=== PATIENT | male | born 1990 | race Caucasian/White ===

== ENCOUNTER 2019-12-25 18:41 | Emergency (ER) | payer MEDICAID, SELFPAY ==
[2019-12-25 18:42] VITALS: BP 101/59; PULSE 62; RESP 20; TEMP 36.8; O2SAT 100; BMI 20.2
--- NOTE | 2019-12-25 18:53 | CT_ITS ---
PROCEDURE: CT ABDOMEN PELVIS WO CON CLINICAL INDICATION: poss kindey stone Right-sided abdominal pain with nausea and vomiting COMPARISON: CT ABDOMEN PELVIS W CON from 06/26/2019 TECHNIQUE: Axial images obtained with sagittal and coronal reformats. All CT scans at the facility use one or more dose reduction, viz: automated exposure control, ma/kV adjustment per patient size (including targeted exams where dose is matched to indication, i.e. head), or iterative reconstruction technique. FINDINGS: LOWER THORAX: Mild fibrotic changes right middle lobe ABDOMEN & PELVIS: The liver, spleen, adrenal glands, pancreas, and gallbladder have an unremarkable unenhanced appearance. The 3 mm stone is present in the mid aspect of the right kidney. There is mild right hydronephrosis and hydroureter secondary to a 3 mm stone in the distal right ureter at the ureterovesical junction. There is a 2 mm nonobstructing stone in the mid polar region of the left kidney. Unremarkable appendix. No intestinal obstruction or free air. The colon has a thickened appearance however this may be due to non distention. No pelvic mass abnormal fluid collection or focal inflammatory change. No acute bony anomalies. Undistended testicle right inguinal region IMPRESSION: 3 mm right ureterovesical junction stone with nonobstructing calculi in both kidneys Nondistended right testicle versus retracted testicle in the inguinal canal area Dictated by: Gregory Castillo MD 12/26/2019 07:39 Electronically signed by Gregory Castillo MD in [place] 12/26/2019 07:39
[2019-12-25 19:10] LABS: Basophils # 0.1 K/mm3 (0-0.2); Basophils % 0.3 % (0.1-2.0); Eosinophils % 0.1 % (0.1-12.0); Hemoglobin 16.2 g/dL (14.1-18.0); Lymphocytes # 2.1 K/mm3 (0.7-4.5); Lymphocytes % 11.7 % (10-50); Mean Corpuscular HGB Conc 35.9 g/dL (31.8-35.4); Mean Corpuscular Hemoglobin 32.7 pg (27.0-31.2); Mean Corpuscular Volume 91.1 fl (80-94); Mean Platelet Volume 7.9 fl (7.4-10.4); Monocytes # 0.6 K/mm3 (0.1-1.0); Monocytes % 3.3 % (1.7-9.3); Neutrophils # 15.4 K/mm3 (1.8-7.8); Neutrophils % 84.6 % (37.0-80.0); Platelet Count 289 K/mm3 (142-424); Red Blood Count 4.94 M/mm3 (4.60-6.20); Red Cell Distribution Width 13.3 % (11.5-17.5); White Blood Count 18.2 K/mm3 (4.8-10.8)
[2019-12-25 19:16] LABS: MANUAL DIFFERENTIAL MANUAL DIFFERENTIAL (MANUAL DIFF)
[2019-12-25 19:17] LABS: Alanine Aminotransferase 31 U/L (12-78); Albumin Level 5.4 g/dl (3.5-5.0); Albumin/Globulin Ratio 1.5 (1.1-1.8); Alkaline Phosphatase 111 U/L (38-126); Amylase 82 U/L (30-110); Anion Gap 16.8 mEq/L (5-15); Aspartate Amino Transferase 48 U/L (17-59); Bilirubin,Total 0.6 mg/dl (0.2-1.3); Blood Urea Nitrogen 21 mg/dl (9-20); Calcium 10.6 mg/dl (8.4-10.2); Carbon Dioxide 26 mmol/L (22.0-30.0); Chloride 102 mmol/L (98-107); Creatinine Clearance Estimated 79 mL/min (50-200); Estimated Glomerular Filt Rate 66 ml/min (>60); GFR (African American) 80 ML/MIN (>60); Globulin 3.5 g/dL (1.3-3.2); Glucose 147 mg/dl (74-100); Lipase 43 U/L (23-300); Potassium 3.8 mmoL/L (3.5-5.1); Sodium 141 mmol/L (136-145); Total Protein,Serum 8.9 g/dl (6.3-8.2)
[2019-12-25 19:21] LABS: Lymphocytes % 6 % (10-50); Neutrophils % 88 % (42-76); Platelet Estimate Normal; RBC Morphology Normal; Total Cells Counted 100; Toxic Granulation 1+
--- NOTE | 2019-12-25 19:35 | [facility].EDABDPAI ---
ED Disposition Clinical Impression: Calculus of kidney Disposition: Home, Self-Care Condition on Discharge: Good Instructions: DI for Acute Abdomen Prescriptions: Cefdinir [Omnicef 300mg Capsule] 300 mg PO BID #20 cap Prescription Printed Promethazine HCl 50 mg PO TID 3 Days #10 tab NS Prescription Printed Ketorolac Tromethamine [Toradol 10mg tablet] 10 mg PO Q6H 5 Days #20 tab Prescription Printed Referrals: Provider,Referral, [Primary Care Provider] - - Critical Care Critical Care Time: No Attestation: On 12/25/19, the high probability of a clinically significant, sudden or life threatening deterioration of the following system(s) required my full and direct attention, intervention and personal management. The time I documented below is in addition to time spent performing reported procedures but includes the following listed in this critical care notation. Medical Decision Making - Medical Records Medical records reviewed: Yes: I reviewed the patient's medical records. - Joe Inquiry Pt receiving controlled substance: No Vital Signs: 12/25/19 18:42 Temperature 98.2 F Temperature Source Oral Pulse Rate [Right] 62 Respiratory Rate 20 Blood Pressure [Right Arm] 101/59 L Blood Pressure Mean [Right Arm] 73 02 Sat by Pulse Oximetry 100 - Lab Data Lab results reviewed: Yes: I reviewed the patient's lab results. Lab Results 12/25/19 18:55: WBC 18.2 H, RBC 4.94, Hgb 16.2, Hct 45.0, MCV 91.1, MCH 32.7 H, MCHC 35.9 H, RDW 13.3, Plt Count 289, MPV 7.9, Neut % (Auto) 84.6 H, Lymph % (Auto) 11.7, Woodson % (Auto) 3.3, Eos % (Auto) 0.1, Baso % (Auto) 0.3, Neut # (Auto) 15.4 H, Lymph # (Auto) 2.1, Woodson # (Auto) 0.6, Eos # (Auto) 0.0, Baso # (Auto) 0.1, Total Counted 100, Neutrophils % (Manual) 88 H, Band Neutrophils % 6.0, Lymphocytes % (Manual) 6 L, Toxic Granulation 1+, Platelet Estimate Normal, RBC Morphology Normal 12/25/19 18:55: Sodium 141, Potassium 3.8, Chloride 102, Carbon Dioxide 26, Anion Gap 16.8 H, BUN 21 H, Creatinine 1.30 H, Estimated Creat Clear 79, Estimated GFR 66, Est GFR ( Amer) 80, Glucose 147 H, Calcium 10.6 H, Total Bilirubin 0.6, AST 48, ALT 31, Alkaline Phosphatase 111, Total Protein 8.9 H, Albumin 5.4 H, Globulin 3.5 H, Albumin/Globulin Ratio 1.5, Amylase 82, Lipase 43 Result diagrams: 12/25/19 18:55 12/25/19 18:55 Orders (Tests/Meds): ED MEDICATIONS Generic Name Dose Route Start Last Admin Trade Name Freq PRN Reason Stop Dose Admin Amlodipine Besylate 10 mg 12/25/19 19:15 12/25/19 19:16 Norvasc 10mg Tablet PO 01/24/20 19:14 10 mg DAILY BARRERA Administration Sodium Chloride 1,000 mls @ 999 mls/hr 12/25/19 19:00 12/25/19 19:04 Sod Chlor 0.9% 1000ml Bag IV 12/25/19 20:00 999 mls/hr .Q1H1M BARRERA Administration Discontinued Medications Generic Name Dose Route Start Last Admin Trade Name Freq PRN Reason Stop Dose Admin Hydromorphone HCl 1 mg 12/25/19 19:13 12/25/19 19:16 Dilaudid 2mg/Ml Syringe IV 12/25/19 19:14 1 mg ONCE ONE Administration Ketorolac Tromethamine 30 mg 12/25/19 18:52 12/25/19 19:02 Toradol 30mg/Ml Vial IV 12/25/19 18:53 30 mg ONCE ONE Administration Morphine Sulfate 4 mg 12/25/19 18:52 12/25/19 19:03 Morphine 4mg/Ml Syringe IV 12/25/19 18:53 4 mg ONCE ONE Administration Ondansetron HCl 4 mg 12/25/19 18:52 12/25/19 19:03 Zofran 4mg/2ml Vial IV 12/25/19 18:53 4 mg ONCE ONE Administration ORDERS Category Date Time Status CT abdomen pelvis wo con Stat Cat Scan 12/25/19 18:53 Taken Diarrhea 6-11 Panel, Cdiff PCR Stat Lab 12/25/19 18:53 Ordered Urinalysis and Microscopic Stat Lab 12/25/19 18:53 Ordered - CT Data CT Scan: Abdomen, Pelvis Time Received: 19:[address] Reviewed: Yes: I have viewed the radiologist's interpretation Preliminary Findings: Abnormal (She has a 1 to 2 mm stone in the distal ureter on the right. Mild hydronephrosis.) Abdominal Pain
[2019-12-25 19:38] LABS: Microscopic, Urine URINE MICROSCOPIC (MICROSCOPIC)
[2019-12-25 19:40] LABS: Appearance,Urine CLEAR (Clear); Blood, Urine 3+ (Negative); Color,Urine YELLOW (Yellow); Glucose,Urine (UA) Negative (Negative); Ketones,Urine 2+ (Negative); Leukocyte Esterase,Urine Negative (Negative); Nitrate,Urine Negative (Negative); Protein,Urine TRACE (Negative); Specific Gravity, Urine >= 1.030 (1.005-1.030); Urobilinogen,Urine 0.2 EU/dl (0.2)
[2019-12-25 19:42] LABS: Bilirubin,Urine Negative (Negative)
[2019-12-25 19:43] LABS: Amorphous Sediment,Urine 2+ /lpf; Hyaline Casts,Urine Occasional #/lpf (0); Mucus,Urine 4+ /lpf
[2019-12-25 19:53] VITALS: BP 112/68; PULSE 71; RESP 16; TEMP 36.9; O2SAT 98
== END 2019-12-25 19:56 | disposition home or self-care (01) ==
PROVIDERS: Emergency Provider Family Medicine
DX: N20.0 Calculus of kidney (principal)
CPT/HCPCS: 74176; 80053; 81001; 82150; 83690; 85007; 85025; 96365; 96367; 96375; 99283; J2405

== ENCOUNTER 2022-08-18 19:44 | Emergency (ER) | payer SELFPAY ==
[2022-08-18 19:45] VITALS: BP 126/83; PULSE 98; RESP 18; TEMP 36.6; O2SAT 100; BMI 29.0
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
--- NOTE | 2022-08-18 20:15 | PC.NURSE ---
Pt gone to RAD via wheelchair
--- NOTE | 2022-08-18 20:23 | PC.NURSE ---
Pt back from RAD
--- NOTE | 2022-08-18 20:26 | PC.NURSE ---
Dr Jackson at bedside for sutures
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
[2022-08-18 21:02] VITALS: BP 134/78; PULSE 78; RESP 18; TEMP 36.6; O2SAT 100
== END 2022-08-18 21:14 | disposition home or self-care (01) ==
PROVIDERS: Emergency Provider Emergency Medicine
DX: S06.0X0A Concussion without loss of consciousness, initial encounter (principal); S01.111A Laceration without foreign body of right eyelid and periocular area, initial encounter; T76.11XA Adult physical abuse, suspected, initial encounter; Y04.0XXA Assault by unarmed brawl or fight, initial encounter; Z23 Encounter for immunization
CPT/HCPCS: 12011; 70450; 70486; 72125; 90471; 90714; 99285